=== PATIENT | male | born 1975 | race Caucasian/White ===

== ENCOUNTER 2017-01-22 21:12 | Emergency (ER) | payer OTHER | END 2017-01-23 03:33 | disposition home or self-care (01) | LOC: ER1 21:12 | DX: S39.012A Strain of muscle, fascia and tendon of lower back, initial encounter (principal); F17.210 Nicotine dependence, cigarettes, uncomplicated; X50.1XXA Overexertion from prolonged static or awkward postures, initial encounter; Y93.89 Activity, other specified | CPT/HCPCS: 96372; 99283; J1100; J1885 ==